=== PATIENT | male | born 1965 | race Caucasian/White ===

== ENCOUNTER 2017-06-23 00:32 | Inpatient (IN) | payer OTHER ==
[~2017-06-23] VITALS: Ht 175.3 cm; Wt 177.8 kg
[~2017-06-23 00:32] MED LIST: ALPRAZOLAM1 MG; ALPRAZOLAM1 MG PO; AMBIEN10 MG PO; ASPIRIN325 MG PO; ATORVASTATIN CA40 MG PO; Alprazolam PO; B12; CIPRO; COLCHICINE0.6 M1 PO; CYANOCOBALAM1000 MCG PO; DICLOFENAC SODI75 MG PO; DILAUDID2 MG PO; Ecotrin PO; FLEXERIL10 MG PO; FLOMAX0.4 MG PO; FOLVITE1 M1 PO; GABAPENTIN600 MG PO; GEMFIBROZIL600 MG; GEMFIBROZIL600 MG PO; GLIPIZIDE10 MG; GLIPIZIDE10 MG PO; GLUCOPHAGE1000 MG PO; Gemfibrozil PO; INDOCIN25 MG PO; JANUVIA100 MG PO; LANTUS 10100 UNITS/; LANTUS 10100 UNITS/ SC; LIPITOR10 MG PO; LO-DOSE ASPIRIN81 M2 PO; METFORMIN HCL1000 M1; NAPROSYN500 MG PO; NOHOMEMEDS; PERCOCET 10/1 TABLET PO; PERCOCET 5-3251 EACH PO; PERCOCET 5/31 TABLET PO; PRAVASTATIN SOD40 MG PO; PRINIVIL20 MG PO; PROAIR HFA8.5 GM IH; PROMETHAZINE HC25 M1 PO; VIBRAMYCIN100 MG PO; VICODIN 5-3001 EACH PO; VIT; VITAMIN D; VITAMIN D250000 UNIT PO; Vitamin B-12 PO; Vitamin D, Drisdol PO; XANAX0.5 MG PO; ZOLOFT100 MG PO; ZOLPIDEM TARTRA10 MG
[2017-06-23 01:39] LABS: BASOPHIL (%) 0.3 % (0-1); EOSINOPHIL COUNT 0.5 K/uL (0-0.3); HEMATOCRIT 43.4 % (38.0-50.0); HEMOGLOBIN 13.9 G/DL (12.5-16.6); IMMATURE GRANULOCYTE (%) 0.6 % (0.0-0.7); LYMPHOCYTE (%) 16.5 % (15-42); MCV 87.5 FL (86-99); MONOCYTE (%) 5.9 % (3-12); MONOCYTE COUNT 0.7 K/uL (0-0.8); NEUTROPHIL (%) 72.7 % (45-76); PLATELET COUNT 194 K/uL (156-360); RBC DIS.WIDTH-CV 14.7 % (11.8-14.6); RBC DIS.WIDTH-SD 47.4 % (39-53); RED BLOOD COUNT 4.96 M/uL (4.00-5.50); WHITE BLOOD COUNT 12.3 K/uL (4.1-10.2)
[2017-06-23 01:45] LABS: CHLORIDE 105 mEq/L (99-109); POTASSIUM 4.3 mEq/L (3.7-5.4); SODIUM 140 mEq/L (136-147)
[2017-06-23 01:47] LABS: GLUCOSE 104 mg/dL (70-99); TOTAL PROTEIN 7.8 g/dL (6.4-8.3)
[2017-06-23 01:49] LABS: TOTAL BILIRUBIN 0.5 mg/dL (0.0-1.0)
[2017-06-23 01:51] LABS: ALKALINE PHOSPHATASE 85 IU/L (3-129); CREATININE 0.9 mg/dL (0.6-1.3); GFR ESTIMATE (CALCULATED) > 59 mL/min/ (58.99-99999)
[2017-06-23 01:53] LABS: AST (GOT) 21 IU/L (2-34); UREA NITROGEN (BUN) 14 mg/dL (9-23)
[2017-06-23 01:54] LABS: ALT (GPT) 33 IU/L (3-49)
[2017-06-23 02:19] LABS: ERTH.SED.RATE 60 MM/HR (0-20)
[2017-06-23] MEDS ORDERED: PERCOCET 7.51 TABLET PO (03:56)
[2017-06-23] MEDS ORDERED: MORPHINE SULFAT15 M1 PO (03:56)
[2017-06-23] MEDS ORDERED: ZOLOFT100 MG PO (03:57)
[2017-06-23 05:58] VITALS: BP 117/68
[2017-06-23 07:40] VITALS: BP 102/55
[2017-06-23 11:36] VITALS: BP 106/58
[2017-06-23] MEDS ORDERED: TESTOSTERO200 MG/12 IM (12:12)
[2017-06-23 16:29] VITALS: BP 122/72
[2017-06-24 00:30] VITALS: BP 133/71
[2017-06-24 08:00] VITALS: BP 133/73
[2017-06-24] MEDS ORDERED: DICLOFENAC SODI75 MG PO (11:33)
== END 2017-06-24 12:17 | disposition home or self-care (01) | DRG 546 ==
LOC: EME 00:32 → EDOF 03:37 → ENRESERV 03:39 → 4SOUTH 05:25 → ENPENDDIS 06-24 → 4SOUTH 06-24 12:17
PROVIDERS: Emergency Medicine; Hospitalist
DX: M48.8X6 Other specified spondylopathies, lumbar region (principal); Z68.43 Body mass index [BMI] 50.0-59.9, adult; F33.9 Major depressive disorder, recurrent, unspecified; M62.830 Muscle spasm of back; E66.01 Morbid (severe) obesity due to excess calories; M51.26 Other intervertebral disc displacement, lumbar region; E11.9 Type 2 diabetes mellitus without complications; E78.5 Hyperlipidemia, unspecified; G89.29 Other chronic pain; I10 Essential (primary) hypertension; M12.9 Arthropathy, unspecified; J45.909 Unspecified asthma, uncomplicated; M54.40 Lumbago with sciatica, unspecified side; F17.220 Nicotine dependence, chewing tobacco, uncomplicated; M54.89 Other dorsalgia; Z98.84 Bariatric surgery status; Z87.442 Personal history of urinary calculi; Z79.84 Long term (current) use of oral hypoglycemic drugs; Z79.51 Long term (current) use of inhaled steroids; Z86.73 Personal history of transient ischemic attack (TIA), and cerebral infarction without residual deficits; Z83.3 Family history of diabetes mellitus; Z82.49 Family history of ischemic heart disease and other diseases of the circulatory system
CPT/HCPCS: 72148; 80053; 82948; 85025; 85651; 99202; 99281; 99285; J1170; J1650; J1815; J1885; J2270